=== PATIENT | male | born 1940 | race Caucasian/White ===

== ENCOUNTER 2017-01-14 13:35 | Emergency (ER) | payer OTHER ==
[~2017-01-14] VITALS: Ht 170.2 cm; Wt 83.2 kg
[~2017-01-14 13:35] MED LIST: ALPRAZOLAM0.25 M2 PO; AMBIEN10 M1 PO; AMBIEN10 MG PO; ASPIR-LOW81 MG PO; ASPIRIN EC325 MG PO; ASPIRIN325 MG PO; ATORVASTATIN CA20 MG PO; AVAPRO150 MG PO; AVAPRO300 MG PO; Ambien PO; Aspirin E.C. PO; BENICAR HCT 401 EAC1 PO; CARDIZEM CD120 MG PO; CARDIZEM LA360 MG PO; CELEBREX200 MG PO; CHONDROITIN1 CAPSULE PO; COUMADIN,JANTOVE2 MG PO; COUMADIN,JANTOVE4 MG PO; COUMADIN3 MG PO; Cardizem CD,Cartia X PO; Coumadin,Jantoven PO; DIGOXIN250 MCG PO; DILTIAZEM 24HR360 MG PO; DILTZAC ER120 MG PO; FLECAINIDE ACE100 M1 PO; FLEXERIL10 MG PO; FLOVENT 44120 INHALA IH; FLOVENT DISKUS1 DIS1 IH; FORTICAL,200 INTUNI NS; FORTICAL3.7 ML NS; Flecainide Acetate PO; Flonase BOTH NARES; GLUCOSAMINE 1,1 EACH PO; GLUCOSAMINE CH1 EACH PO; HYDROCODON-ACE1 EAC7 PO; IRBESARTAN150 MG PO; IRBESARTAN300 MG PO; LANOXIN,DIGIT0.25 MG PO; Levaquin PO; METOPROLOL SUCC25 MG PO; MIACALCIN4 ML NS; NAPROSYN500 MG PO; NASONEX17 GM NS; PACERONE200 M1 PO; PRADAXA150 MG PO; PRILOSEC40 MG PO; Pradaxa PO; SOTALOL80 MG; TAZTIA XT120 M1 PO; TAZTIA XT180 M1 PO; TOPROL XL100 MG PO; TOPROL XL50 MG PO; TRAMADOL HCL50 MG PO; TYLENOL EXTRA500 MG PO; Toprol XL PO; XANAX0.125 MG PO; XANAX0.25 MG PO; XARELTO20 MG PO; ZOLPIDEM TARTRA10 MG PO; celeBREX PO
[2017-01-14] MEDS ORDERED: NORCO 5/3251 TABLET PO (17:49)
[2017-01-14] MEDS ORDERED: MOTRIN600 MG PO (17:50)
[2017-01-14 18:09] VITALS: BP 145/80
== END 2017-01-14 18:09 | disposition home or self-care (01) ==
LOC: EME 13:35
DX: S83.92XA Sprain of unspecified site of left knee, initial encounter (principal); S30.0XXA Contusion of lower back and pelvis, initial encounter; M25.552 Pain in left hip; W10.9XXA Fall (on) (from) unspecified stairs and steps, initial encounter; Y93.E9 Activity, other interior property and clothing maintenance; Y92.008 Other place in unspecified non-institutional (private) residence as the place of occurrence of the external cause; Z96.652 Presence of left artificial knee joint; Z79.01 Long term (current) use of anticoagulants; I48.91 Unspecified atrial fibrillation; I10 Essential (primary) hypertension; Z95.3 Presence of xenogenic heart valve; Z85.820 Personal history of malignant melanoma of skin
CPT/HCPCS: 72170; 73564; 99281; 99283; J1885

== ENCOUNTER 2017-02-01 14:51 | Emergency (ER) | payer OTHER ==
[~2017-02-01] VITALS: Ht 170.2 cm; Wt 84.9 kg
[~2017-02-01 14:51] MED LIST changes: +MOTRIN600 MG PO; +NORCO 5/3251 TABLET PO
[2017-02-01 16:51] LABS: HEMATOCRIT 48.5 % (38.0-50.0); MCH 28.6 PG (29.0-34.0); MCHC 34.8 G/DL (30.0-36.0); MCV 82.2 FL (86-99); MEAN PLAT.VOLUME 10.1 uM^3 (9.0-12.4); PLATELET COUNT 208 K/uL (156-360); RBC DIS.WIDTH-CV 12.7 % (11.8-14.6); RBC DIS.WIDTH-SD 37.9 % (39-53); WHITE BLOOD COUNT 10.5 K/uL (4.1-10.2)
[2017-02-01 17:06] LABS: CHLORIDE 102 mEq/L (99-109); POTASSIUM 4.1 mEq/L (3.7-5.4); SODIUM 142 mEq/L (136-147)
[2017-02-01 17:07] LABS: GLUCOSE 104 mg/dL (70-99)
[2017-02-01 17:10] LABS: ANION GAP 13 MEQ/L (2-14)
[2017-02-01 17:11] LABS: GFR ESTIMATE (CALCULATED) > 59 mL/min/
[2017-02-01 17:12] LABS: UREA NITROGEN (BUN) 11 mg/dL (9-23)
[2017-02-01] MEDS ORDERED: ZOFRAN ODT8 MG PO (18:32)
[2017-02-01 19:12] VITALS: BP 159/81
== END 2017-02-01 19:13 | disposition home or self-care (01) ==
LOC: EME 14:51
PROVIDERS: Physician Assistant
DX: S06.0X0A Concussion without loss of consciousness, initial encounter (principal); W10.9XXA Fall (on) (from) unspecified stairs and steps, initial encounter; I48.91 Unspecified atrial fibrillation; Z79.01 Long term (current) use of anticoagulants; I10 Essential (primary) hypertension; I25.10 Atherosclerotic heart disease of native coronary artery without angina pectoris; F32.9 Major depressive disorder, single episode, unspecified; F41.9 Anxiety disorder, unspecified; Z95.3 Presence of xenogenic heart valve; Z85.820 Personal history of malignant melanoma of skin; Z87.442 Personal history of urinary calculi
CPT/HCPCS: 70450; 80048; 85027; 93005; 99281; 99284

== ENCOUNTER 2017-05-02 16:11 | Inpatient (IN) | payer OTHER ==
[~2017-05-02] VITALS: Ht 170.2 cm; Wt 85.4 kg
[~2017-05-02 16:11] MED LIST changes: +ZOFRAN ODT8 MG PO
[2017-05-02 16:36] LABS: BASOPHIL COUNT 0.1 K/uL (0-0.1); EOSINOPHIL (%) 1.8 % (0-5); EOSINOPHIL COUNT 0.2 K/uL (0-0.3); HEMATOCRIT 42.7 % (38.0-50.0); IMMATURE GRANULOCYTE (%) 0.8 % (0.0-0.7); IMMATURE GRANULOCYTE COUNT 0.1 K/uL; INSTRUMENT ABS NEUTROPHIL CT 9.5 K/uL; LYMPHOCYTE COUNT 1.8 K/uL (1.0-2.8); MCH 28.7 PG (29.0-34.0); MCHC 34.2 G/DL (30.0-36.0); MCV 84.1 FL (86-99); MEAN PLAT.VOLUME 10.2 uM^3 (9.0-12.4); MONOCYTE (%) 6.8 % (3-12); MONOCYTE COUNT 0.9 K/uL (0-0.8); NEUTROPHIL (%) 75.6 % (45-76); NEUTROPHIL COUNT 9.5 K/uL (1.8-6.4); PLATELET COUNT 157 K/uL (156-360); RBC DIS.WIDTH-CV 13.1 % (11.8-14.6); RBC DIS.WIDTH-SD 40.1 % (39-53); RED BLOOD COUNT 5.08 M/uL (4.00-5.50); WHITE BLOOD COUNT 12.5 K/uL (4.1-10.2)
[2017-05-02 16:44] LABS: AMYLASE 46 IU/L (1-118); CHLORIDE 106 mEq/L (99-109); POTASSIUM 4.6 mEq/L (3.7-5.4); SODIUM 142 mEq/L (136-147)
[2017-05-02 16:46] LABS: GLUCOSE 164 mg/dL (70-99)
[2017-05-02 16:48] LABS: ANION GAP 13 MEQ/L (2-14)
[2017-05-02 16:49] LABS: SERUM ETHYL ALCOHOL < 10 mg/dL
[2017-05-02 16:50] LABS: GFR ESTIMATE (CALCULATED) 57 mL/min/ (58.99-99999)
[2017-05-02 16:51] LABS: UREA NITROGEN (BUN) 22 mg/dL (9-23)
[2017-05-02 16:53] LABS: LIPASE 20 U/L (1.0-51.0)
[2017-05-02] MEDS ORDERED: IRBESARTAN150 MG PO (19:19)
[2017-05-02] MEDS ORDERED: SYSTANE BALANCE10 ML BOTH EYES (19:23)
[2017-05-02] MEDS ORDERED: SYMBICORT60 INHALAT IH (19:25)
[2017-05-02] MEDS ORDERED: TRAMADOL HCL50 MG PO (19:25)
[2017-05-02] MEDS ORDERED: FORTAMET500 M1 PO (19:28)
[2017-05-02 21:48] LABS: MCH 28.5 PG (29.0-34.0); MCHC 34.1 G/DL (30.0-36.0); MCV 83.7 FL (86-99); MEAN PLAT.VOLUME 10.3 uM^3 (9.0-12.4); PLATELET COUNT 143 K/uL (156-360); RBC DIS.WIDTH-CV 13.2 % (11.8-14.6); RBC DIS.WIDTH-SD 40.3 % (39-53); RED BLOOD COUNT 4.66 M/uL (4.00-5.50); WHITE BLOOD COUNT 12.2 K/uL (4.1-10.2)
[2017-05-02 22:09] LABS: Estimated Average Glucose 177 mg/dL (70-123); HEMOGLOBIN A1c (GLYCOHEMOGLOB) 7.8 % HGB (Below 5.7)
[2017-05-02 22:39] VITALS: BP 137/75
[2017-05-03 00:20] VITALS: BP 134/61
[2017-05-03 00:38] LABS: POINT-OF-CARE METER ID UU14117124
[2017-05-03 04:00] VITALS: BP 120/60
[2017-05-03 05:47] LABS: POINT-OF-CARE METER ID UU14149397
[2017-05-03 07:23] VITALS: BP 117/64
[2017-05-03 07:46] LABS: HEMATOCRIT 38.5 % (38.0-50.0); MCV 85.2 FL (86-99)
[2017-05-03 07:53] LABS: INTER. NORMALIZED RATIO 1.9; PROTHROMBIN TIME 21.6 SEC (10.2-12.9)
[2017-05-03 07:55] LABS: PTT 31.8 SEC (25-37)
[2017-05-03 08:13] LABS: ANION GAP 11 MEQ/L (2-14); CHLORIDE 103 MEQ/L (99-109); GFR ESTIMATE (CALCULATED) 39 mL/min/ (58.99-99999); GLUCOSE 187 mg/dL (70-99); POTASSIUM 4.4 MEQ/L (3.7-5.4); SAMPLE HEMOLYSIS CHECK 0; SAMPLE ICTERIC CHECK 1; SAMPLE LIPEMIA CHECK 0; SODIUM 141 MEQ/L (136-147); UREA NITROGEN (BUN) 26 mg/dL (9-23)
[2017-05-03 12:26] VITALS: BP 174/84
[2017-05-03 12:26] LABS: POINT-OF-CARE METER ID UU14149397
[2017-05-03 16:51] VITALS: BP 111/62
[2017-05-03 19:03] LABS: POINT-OF-CARE METER ID UU13113675
[2017-05-03 22:26] LABS: ADD MIUA? NO; BILIRUBIN NEGATIVE; BLOOD NEGATIVE; COLOR YELLOW ((YELLOW)); GLUCOSE (STRIP) 50; KETONES 20; LEUKOCYTES NEGATIVE; NITRITE NEGATIVE; PROTEIN (STRIP) NEGATIVE; SPECIFIC GRAVITY 1.019 (1.000-1.030)
[2017-05-04] VITALS (7 sets, daily range): BP systolic 106–151; BP diastolic 55–69
[2017-05-04 00:40] LABS: POINT-OF-CARE METER ID UU14117124
[2017-05-04 06:42] LABS: POINT-OF-CARE METER ID UU14188577
[2017-05-04 07:46] LABS: MCH 28.8 PG (29.0-34.0); MCHC 32.6 G/DL (30.0-36.0); MCV 88.4 FL (86-99); MEAN PLAT.VOLUME 10.5 uM^3 (9.0-12.4); PLATELET COUNT 126 K/uL (156-360); RBC DIS.WIDTH-CV 13.6 % (11.8-14.6); RBC DIS.WIDTH-SD 44.4 % (39-53); RED BLOOD COUNT 3.96 M/uL (4.00-5.50); WHITE BLOOD COUNT 9.3 K/uL (4.1-10.2)
[2017-05-04 07:51] LABS: ANION GAP 4 MEQ/L (2-14); CHLORIDE 105 MEQ/L (99-109); GFR ESTIMATE (CALCULATED) 45 mL/min/ (58.99-99999); GLUCOSE 204 mg/dL (70-99); POTASSIUM 4.8 MEQ/L (3.7-5.4); SAMPLE HEMOLYSIS CHECK 0; SAMPLE ICTERIC CHECK 0; SAMPLE LIPEMIA CHECK 0; SODIUM 141 MEQ/L (136-147); UREA NITROGEN (BUN) 25 mg/dL (9-23)
[2017-05-04 13:00] LABS: POINT-OF-CARE METER ID UU14149397
[2017-05-04 17:41] LABS: POINT-OF-CARE METER ID UU14188577
[2017-05-05 00:21] LABS: POINT-OF-CARE METER ID UU14117124
[2017-05-05 02:33] LABS: POINT-OF-CARE METER ID UU14188577
[2017-05-05 03:49] VITALS: BP 151/67
[2017-05-05 06:39] LABS: POINT-OF-CARE METER ID UU14117124
[2017-05-05 06:47] LABS: HEMATOCRIT 29.3 % (38.0-50.0); MCH 28.4 PG (29.0-34.0); MCHC 32.4 G/DL (30.0-36.0); MCV 87.5 FL (86-99); MEAN PLAT.VOLUME 10.5 uM^3 (9.0-12.4); PLATELET COUNT 140 K/uL (156-360); RBC DIS.WIDTH-CV 13.5 % (11.8-14.6); RBC DIS.WIDTH-SD 43.4 % (39-53); RED BLOOD COUNT 3.35 M/uL (4.00-5.50); WHITE BLOOD COUNT 8.7 K/uL (4.1-10.2)
[2017-05-05 07:12] LABS: ANION GAP 7 MEQ/L (2-14); CHLORIDE 106 MEQ/L (99-109); GFR ESTIMATE (CALCULATED) > 59 mL/min/ (58.99-99999); GLUCOSE 210 mg/dL (70-99); POTASSIUM 4.6 MEQ/L (3.7-5.4); SAMPLE HEMOLYSIS CHECK 0; SAMPLE ICTERIC CHECK 0; SAMPLE LIPEMIA CHECK 0; SODIUM 141 MEQ/L (136-147); UREA NITROGEN (BUN) 18 mg/dL (9-23)
[2017-05-05 09:36] VITALS: BP 154/73
[2017-05-05 11:35] LABS: POINT-OF-CARE METER ID UU14117124
[2017-05-05 12:14] VITALS: BP 145/63
[2017-05-05 16:24] LABS: POINT-OF-CARE METER ID UU14117124
[2017-05-05 17:03] VITALS: BP 98/54
[2017-05-05 19:46] VITALS: BP 153/73
[2017-05-05 23:26] VITALS: BP 138/79
[2017-05-05 23:58] LABS: POINT-OF-CARE METER ID UU14208753
[2017-05-06 04:19] VITALS: BP 128/64
[2017-05-06 06:12] LABS: HEMATOCRIT 30.7 % (38.0-50.0); MCH 28.8 PG (29.0-34.0); MCHC 33.6 G/DL (30.0-36.0); MCV 85.8 FL (86-99); MEAN PLAT.VOLUME 10.4 uM^3 (9.0-12.4); PLATELET COUNT 162 K/uL (156-360); RBC DIS.WIDTH-CV 13.2 % (11.8-14.6); RBC DIS.WIDTH-SD 41.3 % (39-53); RED BLOOD COUNT 3.58 M/uL (4.00-5.50); WHITE BLOOD COUNT 10.2 K/uL (4.1-10.2)
[2017-05-06 06:25] LABS: ANION GAP 7 MEQ/L (2-14); CHLORIDE 104 MEQ/L (99-109); GFR ESTIMATE (CALCULATED) > 59 mL/min/ (58.99-99999); GLUCOSE 172 mg/dL (70-99); POTASSIUM 4.4 MEQ/L (3.7-5.4); SAMPLE HEMOLYSIS CHECK 0; SAMPLE ICTERIC CHECK 0; SAMPLE LIPEMIA CHECK 0; SODIUM 141 MEQ/L (136-147); UREA NITROGEN (BUN) 14 mg/dL (9-23)
[2017-05-06 06:57] LABS: POINT-OF-CARE METER ID UU14208753
[2017-05-06 08:52] VITALS: BP 132/68
[2017-05-06 12:06] LABS: POINT-OF-CARE METER ID UU14117124
[2017-05-06 12:44] VITALS: BP 131/69
[2017-05-06 15:53] VITALS: BP 132/60
[2017-05-06 17:08] LABS: POINT-OF-CARE METER ID UU14149397
[2017-05-06 20:23] VITALS: BP 136/69
[2017-05-06 22:15] LABS: POINT-OF-CARE METER ID UU14149397
[2017-05-06 23:34] VITALS: BP 117/57
[2017-05-07 03:34] VITALS: BP 140/67
[2017-05-07 06:45] LABS: POINT-OF-CARE METER ID UU14117124
[2017-05-07 08:24] VITALS: BP 143/74
[2017-05-07] MEDS ORDERED: Salonpas 4% Patch TD (11:22)
[2017-05-07] MEDS ORDERED: ENDOCET 5-3251 EACH PO (11:22)
[2017-05-07 12:05] LABS: POINT-OF-CARE METER ID UU14117124
[2017-05-07 12:12] VITALS: BP 122/60
[2017-05-07 15:53] VITALS: BP 127/62
[2017-05-07 16:43] LABS: POINT-OF-CARE METER ID UU14149397
[2017-05-07 20:23] VITALS: BP 128/59
[2017-05-07 21:45] LABS: POINT-OF-CARE METER ID UU14149397
[2017-05-08 00:04] VITALS: BP 143/78
[2017-05-08 03:56] VITALS: BP 177/79
[2017-05-08 06:33] LABS: POINT-OF-CARE METER ID UU14117124
[2017-05-08 07:51] VITALS: BP 160/82
[2017-05-08 11:22] LABS: POINT-OF-CARE METER ID UU14117124
[2017-05-08 11:40] VITALS: BP 155/78
== END 2017-05-08 13:59 | DRG 481 ==
LOC: TRA 16:11 → EDOF 19:54 → 3EAST 19:54 → ENRESERV 19:55 → 3EAST 22:12
PROVIDERS: Emergency Medicine; Hospitalist; Orthopaedic Surgery; Physician Assistant
PROC: 0QS704Z Reposition Left Upper Femur with Internal Fixation Device, Open Approach (ICD-10-PCS; principal; 2017-05-03)
DX: S72.142A Displaced intertrochanteric fracture of left femur, initial encounter for closed fracture (principal); N17.9 Acute kidney failure, unspecified; I48.0 Paroxysmal atrial fibrillation; I10 Essential (primary) hypertension; E78.5 Hyperlipidemia, unspecified; E11.9 Type 2 diabetes mellitus without complications; I35.0 Nonrheumatic aortic (valve) stenosis; I25.10 Atherosclerotic heart disease of native coronary artery without angina pectoris; W18.30XA Fall on same level, unspecified, initial encounter; Z96.659 Presence of unspecified artificial knee joint; Z68.29 Body mass index [BMI] 29.0-29.9, adult; Z95.2 Presence of prosthetic heart valve; Z87.442 Personal history of urinary calculi; Z85.820 Personal history of malignant melanoma of skin; Z79.01 Long term (current) use of anticoagulants; Z82.3 Family history of stroke; Z82.62 Family history of osteoporosis
CPT/HCPCS: 71010; 72170; 73502; 73552; 76000; 80048; 81003; 82150; 82948; 83036; 83690; 85014; 85018; 85025; 85027; 85610; 85730; 86850; 86900; 86901; 87086; 93005; 93306; 94010; 94640; 94640 76; 94799; 97530 GO; 99202; 99281; 99285; C1713; G0480; J0690; J1170; J1644; J1815; J2250; J2270; J2405; J2550; J2710; J3010; J7030; J7120